=== PATIENT | male | born 1980 | race Two or more races ===

== ENCOUNTER 2020-01-23 11:57 | Outpatient (CLI) | payer OTHER | END 2020-01-23 15:16 | disposition home or self-care (01) | LOC: SONOGRAMA 11:57 | PROVIDERS: ATTEND Pathology Anatomic Pathology & Clinical Pathology | DX: R22.2 Localized swelling, mass and lump, trunk (principal) ==

== ENCOUNTER 2024-02-29 10:20 | Outpatient (CLI) | payer OTHER | END 2024-02-29 10:24 | disposition home or self-care (01) | LOC: SONOGRAMA 10:20 | PROVIDERS: ATTEND Pathology Anatomic Pathology & Clinical Pathology | DX: C73 Malignant neoplasm of thyroid gland (principal) ==

== ENCOUNTER 2024-11-07 05:04 | Day surgery (SDC) | payer OTHER ==
[2024-11-01 08:58] LABS: BASO % 0.3 % (0.1-1.2); EOS # 0.13 (0.04-0.54); EOS % 1.4 % (0.7-7.0); LYMPH # 2.50 (1.18-3.74); LYMPH % 27.8 % (19.3-53.1); MEAN PLATELET VOLUME 9.90 fl (9.4-12.4); MONO # 0.67 (0.24-0.82); MONO % 7.5 % (4.7-12.5); NEUT # 5.63 (1.56-6.13); NEUT % 62.7 % (34.0-71.1); RED CELL DISTRIBUTION WIDTH 15.1 % (11.6-14.4)
[2024-11-01 09:03] VITALS: BP 109/75
[2024-11-01 09:36] LABS: ALT/SGPT 35.0 U/L (12-78); AST/SGOT 20.0 U/L (15-37); BILIRUBIN TOTAL 0.9 mg/dL (0.3-1.2); BUN CREA RATIO 15.0 (7.0-25.0); CREATININE SERUM 0.91 mg/dL (0.70-1.30); GFR 89.69; GLOBULINA 4.5 G/DL (2.4-3.5); GLUCOSE FASTING 106.0 mg/dL (65-100); OSMOLALITY SERUM 277.0 MOSM/KG (275-295)
[2024-11-01 09:44] LABS: URINE APPEARANCE Clear; URINE BILIRRUBIN Negative (NEGATIVE); URINE BLOOD Negative; URINE COLOR Yellow; URINE GLUCOSE Negative (NEGATIVE); URINE KETONE Negative (NEGATIVE); URINE LEUKOCYTE Negative; URINE NITRATE Negative; URINE PROTEIN Negative (NEGATIVE); URINE UROBILINOGEN 0.2 E.U./dl
[2024-11-01 09:46] LABS: URINE BACTERIA 57.5 uL (0.0-1933); URINE WBC 2.1 uL (0.0-23.2)
[2024-11-01 09:47] LABS: INR 1.0
[2024-11-01 09:50] LABS: URINE CAST 0.00 uL (0.0-1.40); URINE EPITHELIAL CELLS 1.0 uL (0.0-38.8); URINE RBC 0.4 uL (0.0-20.8)
[~2024-11-07] VITALS: Ht 152.4 cm; Wt 5.0 kg
[~2024-11-07 05:04] MED LIST: ALTACE10 MG PO; SYNTHROID200 MCG PO; SYNTHROID50 MCG PO
[2024-11-07] MEDS ORDERED: DEXAMETHASONE SODIUM PHOSPHATE 4 MG/ML VIAL IV ONE (08:30)
[2024-11-07] MEDS ORDERED: ONDANSETRON HCL 2 MG/ML VIAL IV ONE (12:05)
== END 2024-11-07 15:25 | disposition home or self-care (01) ==
LOC: O/R 05:04 → SURH 05:04 → CIR.AMB 05:04 → SURH 07:00 → EDSTATUS 08:15 → O/R 15:25 → CIR.AMB 15:25
PROVIDERS: ATTEND Surgery
DX: C73 Malignant neoplasm of thyroid gland (principal)